=== PATIENT | female | born 1985 | race Caucasian/White ===

== ENCOUNTER → 2017-03-08 | Outpatient (CLI) | payer OTHER ==
[~2017-03-08] MED LIST: COLACE-DPS100 MG PO; FLONASE 0.05% D16 GM NS; MELATONIN10 MG PO; MOTRIN-DPS800 MG PO; NIPPLECREAM TP; PERCOCET 5-3251 EACH PO; PRENATAL VITAM1 EAC9 PO
== END | disposition home or self-care (01) ==
LOC: EDT 11:30
DX: O24.419 Gestational diabetes mellitus in pregnancy, unspecified control (principal); Z71.3 Dietary counseling and surveillance